=== PATIENT | female | born 1970 | race Caucasian/White ===

== ENCOUNTER 2016-11-13 10:33 | Day surgery (SDC) | payer MEDICAID ==
[2016-11-13] VITALS (10 sets, daily range): BP systolic 101–133; BP diastolic 71–83; PULSE 70–82; RESP 15–20; Ht 162.6 cm; Wt 57.2 kg
[~2016-11-13] VITALS: Ht 162.6 cm; Wt 57.2 kg
[2016-11-13 11:10] LABS: ADD SCAN DIFF NO
[2016-11-13 11:18] LABS: BASOPHILS % 0.2 % (0.0-2.0); EOSINOPHILS % 0.2 % (0.0-7.0); HEMATOCRIT 34.9 % (37.0-47.0); HEMOGLOBIN 10.9 g/dl (12.0-16.0); LYMPHOCYTES # 1.1 10^3/ul (0.8-2.9); LYMPHOCYTES % 9.4 % (15.0-51.0); MEAN CORPUSCULAR HEMOGLOBIN 27.4 pg (29.0-33.0); MEAN CORPUSCULAR HGB CONC 31.2 g/dl (32.0-37.0); MEAN CORPUSCULAR VOLUME 87.7 fl (82.0-101.0); MEAN PLATELET VOLUME 10.8 fl (7.4-10.4); MONOCYTE # 0.7 10^3/ul (0.3-0.9); MONOCYTES % 5.6 % (0.0-11.0); NEUTROPHIL # 10.2 10^3/ul (1.6-7.5); NEUTROPHILS % 84.1 % (39.0-77.0); PLATELET COUNT 291 10^3/UL (140-415); RED BLOOD COUNT 3.98 10^6/ul (4.20-5.40); WHITE BLOOD COUNT 12.1 10^3/ul (4.8-10.8)
[2016-11-13] MEDS ORDERED: LACTATED RINGER'S 1,000 ML IV SCH (11:30)
[2016-11-13 11:37] LABS: INR 0.95; PROTIME 12.7 Sec (12.2-14.2)
--- NOTE | 2016-11-13 11:42 | PREOPHP ---
DATE OF ADMISSION: 11/13/2016 HISTORY OF PRESENT ILLNESS: This is a 45-year-old female 3, para 2, abortions 1. This catherine ent has seen me yesterday due to a large swelling area that showed up on her left vulvar area that w as extremely painful. This patient had no other history. She has regular periods. A history of fi broids, heavy periods, painful at times only, regular periods of 4 to 5 days with clots. She is not using any control. MEDICATIONS: She is on no medication. PAST SURGICAL HISTORY: The patient has a history of a D and C, left breast biopsy which was benign. PHYSICAL EXAMINATION: VITAL SIGNS: The patient's vital signs are stable. The blood pressure is 140/90, pulse is 80. She is afebrile. HEAD AND NECK: Normal. CHEST: Clear. HEART: Normal sinus rhythm. LUNGS: Clear. BREASTS: With fibrocystic breast disease. No masses. ABDOMEN: Soft, nontender, no masses. PELVIC: The volar area with a large glandular Bartholin's gland abscess with fluctuation of about 5 to 6 cm that is swelling the whole labia on the left side. EXTREMITIES: Normal. The rest of the pelvic examination is normal. FAMILY HISTORY: Unremarkable. The patient has been advised for a marsupialization of the left Bar tholin cyst abscess and with drainage and application of Bartholin's catheter. She has been advised of the possible risks and possible complications of the procedure with her alternatives and options . Written information was provided. She had no more questions and agreed to go ahead with the [facility] with full understanding and no more questions. Dictated By: NIXON ATKINS/NTS Conf#: [id number] DID#: [id number]
[2016-11-13 11:43] LABS: CALCIUM 9.3 mg/dl (8.4-10.2); CREATININE 0.57 mg/dl (0.44-1.00); POTASSIUM 3.9 mmol/L (3.5-5.1)
--- NOTE | 2016-11-13 11:53 | HPN ---
Date/Time of Note Date/Time of Note DATE: 11/13/16 TIME: 11:53 Interval H&P Admission Note Pt. seen H&P reviewed: No system changes NIXON LAMA MD Nov 13, 2016 11:53
[2016-11-13] MEDS ORDERED: MIDAZOLAM 1 MG/ML 2 ML INJ ONE (11:56)
[2016-11-13] MEDS ORDERED: FENTAnyl 50 MCG/ML VIAL ONE (11:57)
[2016-11-13] MEDS ORDERED: MEPERIDINE 25 MG INJ IV PRN (12:30)
[2016-11-13] MEDS ORDERED: ONDANSETRON 4 MG INJ IV PRN (12:30)
[2016-11-13] MEDS ORDERED: DIPHENHYDRAMINE 50 MG INJ IV PRN (12:30)
--- NOTE | 2016-11-13 12:32 | PD.PPDC ---
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
[2016-11-13] MEDS ORDERED: LIDOCAINE 2% (SDV) 5 ML INJ ONE (12:33)
[2016-11-13] MEDS ORDERED: CEFAZOLIN 1 GM INJ ONE (12:33)
[2016-11-13] MEDS ORDERED: PROPOFOL 20 ML ONE (12:33)
[2016-11-13] MEDS ORDERED: ONDANSETRON 4 MG INJ ONE (12:33)
--- NOTE | 2016-11-13 12:35 | OPR ---
Date/Time of Note Date/Time of Note DATE: 11/13/16 TIME: 12:33 Operative Report Free Text/Dictation MARSUPIALIZATION OF LEFT BARTHOLIN CYST APPLICATION OF BARTHOLIN CATHETER Procedure Date: Nov 13, 2016 Preoperative Diagnosis LEFT LARGE BARTHOLIN CYST -ABSCESS Postoperative Diagnosis SAME Surgeon: NIXON LAMA MD Anesthesia: general Anesthesiologist: ARIANA ENNIS MD Estimated Blood Loss: minimal Complications: None Pt Condition Post Procedure: stable Disposition: PACU NIXON LAMA MD Nov 13, 2016 12:35
--- NOTE | 2016-11-13 12:54 | OPR ---
DATE OF OPERATION: 11/13/2016 PROCEDURE: Marsupialization of left Bartholin's cyst, application of Bartholin catheter. POSTOPERATIVE DIAGNOSIS: Left large Bartholin cyst versus abscess. POSTOPERATIVE DIAGNOSIS: Left large Bartholin cyst versus abscess. SURGEON: Nixon Rasheed MD ANESTHESIOLOGIST: Dr. Curry with general anesthesia. DESCRIPTION OF PROCEDURE: The patient was given general anesthesia and placed in the lithotomy posi tion. The perineal and vaginal area were prepped and draped. A large left Bartholin mass was obser agustin, with no inflammatory signs. The small blade of a knife was used at the mucocutaneous junction a nd an incision was made. Abundant mucousy discharge was obtained from the gland, that was debrided with hemostats all the way to break the smaller possible abscesses that were inside. The cavity was emptied and the fluid was sent for cultures, aerobic and anaerobic. Marsupialization of the area w as done at 12 o'clock, 6 o'clock, 9 o'clock and 3 o'clock with 2-0 Vicryl sutures. The Bartholin ca theter was applied to the cavity, injecting 3 mL of fluid and the Bartholin catheter was attached to one of the sutures of the skin and the Bartholin was fixed placed inside the vagina for comfort. T he procedure was finished by removing all the instruments. The patient tolerated the procedure well and left the OR awake and stable. Sponge counts and instrument counts were correct. Intravenous a ntibiotics were given for prophylaxis. Dictated By: NIXON ATKINS/ANDRES Conf#: [id number] DID#: [id number]
[2016-11-13] MEDS: FENTAnyl 50 MCG/ML VIAL IV PRN ×2 (13:08→13:20)
== END 2016-11-13 14:52 | disposition home or self-care (01) ==
LOC: SDS 10:33
PROVIDERS: ATTEND Obstetrics & Gynecology
DX: N75.0 Cyst of Bartholin's gland (principal)
CPT/HCPCS: 56440; 80048; 85025; 85610; 85730; 87070; 87075; 87102; 87116; J0690; J2175; J2250; J2405; J3010; Z7512; Z7610

== ENCOUNTER 2017-01-08 15:53 | Day surgery (SDC) | payer OTHER ==
[~2017-01-08] VITALS: Ht 162.6 cm; Wt 56.6 kg
[2017-01-08] VITALS (9 sets, daily range): BP systolic 119–142; BP diastolic 70–93; PULSE 72–96; RESP 13–46; Ht 162.6 cm; Wt 56.6 kg
--- NOTE | 2017-01-08 10:03 | PREOPHP ---
DATE OF ADMISSION: 01/08/2017 HISTORY OF PRESENT ILLNESS: This patient has been recently in the hospital for drainage and marsupialization of a left Bartholin cyst with application of Bartholin catheters. This was done in October of this year. At this time, the Bartholin's cyst is recurrent with severe pain and recent infection with pus drainage. This time again, the patient is being admitted for a left Bartholin cystectomy, which is recurrent and with application of a Bartholin catheter again. This patient has been using Keflex and Tylenol No. 3 for pain. PAST SURGERY HISTORY: Left breast biopsy, which was negative in 2016 and marsupialization of the left Bartholin's cyst and it is recurrent at this time, and otherwise, she has been healthy. PAST SURGICAL HISTORY: She has a history of tonsillectomy. ALLERGIES: SHE IS NOT ALLERGIC TO ANY MEDICATION. SOCIAL HISTORY: She does not drink or smoke. No history of drug addiction. FAMILY HISTORY: For breast cancer and diabetes. PHYSICAL EXAMINATION: VITAL SIGNS: Stable. She weighs 120 pounds. She is 5 feet 4 inches. Blood pressure is 110/60, pulse is 80, respirations 16. HEAD AND NECK: Normal. CHEST: Clear. HEART: Normal sinus rhythm. LUNGS: Clear. BREASTS: Soft, nontender, no masses. ABDOMEN: Soft, nontender, no masses. PELVIS: The external genitalia with a Bartholin's cyst that is recurrent of about 5 cm in diameter with pain. There is no fluctuation. EXTREMITIES: Normal with normal pulses and no edema. DIAGNOSIS: Recurrent left Bartholin cyst. PLAN: She is undergoing marsupialization of the Bartholin cyst with application of a Bartholin catheter. She has been advised of the possible risks and possible complications of the procedure with her alternatives and options. Written information was provided. She had no more questions, and agreed to go ahead with the procedure with full understanding and no more questions. Dictated By: Criss Rasheed MD /trang/teodora /Document#: [id number]
--- NOTE | 2017-01-08 15:24 | HPN ---
Date/Time of Note Date/Time of Note DATE: 01/08/17 TIME: 15:24 Interval H&P Admission Note Pt. seen H&P reviewed: No system changes NIXON LAMA MD Jan 08, 2017 15:24
[2017-01-08] MEDS ORDERED: LACTATED RINGER'S 1,000 ML IV* SCH (17:00)
[2017-01-08] MEDS ORDERED: CEFAZOLIN 2 GM/50 ML (PMX) 50 ML IVPB SCH (17:00)
[2017-01-08 17:03] LABS: BASOPHILS % 0.6 % (0.0-2.0); EOSINOPHILS # 0.1 10^3/ul (0.0-0.5); EOSINOPHILS % 1.2 % (0.0-7.0); HEMATOCRIT 36.8 % (37.0-47.0); HEMOGLOBIN 11.9 g/dl (12.0-16.0); LYMPHOCYTES # 1.7 10^3/ul (0.8-2.9); LYMPHOCYTES % 33.9 % (15.0-51.0); MEAN CORPUSCULAR HEMOGLOBIN 27.4 pg (29.0-33.0); MEAN CORPUSCULAR HGB CONC 32.3 g/dl (32.0-37.0); MEAN CORPUSCULAR VOLUME 84.8 fl (82.0-101.0); MONOCYTE # 0.4 10^3/ul (0.3-0.9); MONOCYTES % 8.4 % (0.0-11.0); NEUTROPHILS % 55.7 % (39.0-77.0); PLATELET COUNT 283 10^3/UL (140-415); RED BLOOD COUNT 4.34 10^6/ul (4.20-5.40); RED CELL DISTRIBUTION WIDTH 14.7 % (11.5-14.5)
[2017-01-08] MEDS ORDERED: LIDOCAINE 2%/EPI (MDV) 20ML INJ ONE (17:11)
[2017-01-08 17:31] LABS: PARTIAL THROMBOPLASTIN TIME 26.8 Sec (25.0-35.0); PROTIME 13.2 Sec (12.2-14.2)
[2017-01-08] MEDS ORDERED: LIDOCAINE 2% (SDV) 5 ML INJ ONE (17:53)
[2017-01-08] MEDS ORDERED: PROPOFOL 20 ML ONE (17:53)
[2017-01-08] MEDS ORDERED: MIDAZOLAM 1 MG/ML 2 ML INJ ONE (17:54)
[2017-01-08] MEDS ORDERED: LIDOCAINE 1% (MDV) 20 ML INJ ONE (17:56)
[2017-01-08] MEDS ORDERED: CEFAZOLIN 1 GM INJ ONE (18:07)
[2017-01-08] MEDS ORDERED: FAMOTIDINE 20 MG INJ ONE (18:16)
[2017-01-08] MEDS ORDERED: ONDANSETRON 4 MG INJ ONE (18:16)
[2017-01-08] MEDS ORDERED: DEXAMETHASONE 4 MG/ML 1 ML INJ ONE (18:16)
--- NOTE | 2017-01-08 18:45 | PD.PPDC ---
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
--- NOTE | 2017-01-08 18:47 | OPR ---
Date/Time of Note Date/Time of Note DATE: 01/08/17 TIME: 18:46 Operative Report Procedure Date: Jan 08, 2017 Preoperative Diagnosis RECURRENT LEFT BARTHOLIN CYST Postoperative Diagnosis SAME Operation Performed MARSUPIALIZATION OF LEFT BARTHOLIN CYST Surgeon: NIXON LAMA MD Anesthesia Type: general Anesthesiologist: MAYTE ALEJO DO Estimated Blood Loss: 0 - 10 ml's Transfusion Required: no Specimen: none Grafts/Implants: none Complications: no Pt Condition Post Procedure: stable Disposition: PACU NIXON LAMA MD Jan 08, 2017 18:47
[2017-01-08] MEDS ORDERED: HYDROmorphONE (0.2 MG/ML) 10ML SYG IV ONE (18:57)
[2017-01-08] MEDS ORDERED: ONDANSETRON 4 MG INJ IV PRN (19:00)
[2017-01-08] MEDS ORDERED: HYDROmorphONE (0.2 MG/ML) 10ML SYG IV PRN (19:00)
[2017-01-08] MEDS ORDERED: LORAZEPAM 2 MG INJ IV PRN (19:00)
[2017-01-08] MEDS: HYDROmorphONE (0.2 MG/ML) 10ML SYG IV PRN ×3 (19:08→19:34)
--- NOTE | 2017-01-08 21:13 | OPR ---
DATE OF OPERATION: 01/08/2017 PROCEDURES: 1. Marsupialization of left Bartholin's cyst. 2. Application of Bartholin's catheter. SURGEON: Dr. Rasheed. ANESTHESIOLOGIST: Dr. Devries. ANESTHESIA: General. PREOPERATIVE DIAGNOSIS: Recurrent left Bartholin's cyst. POSTOPERATIVE DIAGNOSIS: Recurrent left Bartholin's cyst. OPERATIVE PROCEDURE: The patient was given general anesthesia, placed in the lithotomy position. The perineal vaginal area was prepped and draped. The patient's right Bartholin's gland feels slightly swollen and the left Bartholin's gland has been draining as she stated a few days ago. There was still some drainage that needed to come out through the previous incision. A bigger incision was made and the debridement of the inside of the Bartholin's gland was done several times trying to break down any possible capsulation. The area was only sanguineous fluid coming out. The Bartholin's gland was applied with 5 cc saline and the marsupialization of the outlet of the gland was done with 4 sutures with a 2-0 Vicryl with figure of 8 sutures. The procedure was finished by cleaning the area. The patient tolerated the procedure well and left the OR awake and stable. Sponge counts and instrument counts were correct. Intravenous antibiotics were given for prophylaxis. Dictated By: Criss Rasheed MD /trang/stephani /Document#: [id number]
== END 2017-01-08 19:59 | disposition home or self-care (01) ==
LOC: SDS 15:53
PROVIDERS: ATTEND Obstetrics & Gynecology
DX: N75.0 Cyst of Bartholin's gland (principal)
CPT/HCPCS: 56440; 84703; 85025; 85610; 85730; J0690; J1100; J1170; J2250; J2405; Z7512; Z7610